=== PATIENT | female | born 1990 | race Caucasian/White ===

== ENCOUNTER 2017-05-19 11:00 | Emergency (ER) | payer BC ==
[2017-05-19 11:12] VITALS: BMI 22.4
--- NOTE | 2017-05-19 11:40 | PDOC ---
History of Present Illness - General Chief Complaint: Pain, Acute Stated Complaint: LOWER PELVIC PAIN Time Seen by Provider: 05/19/17 11:38 Past History - Past Medical History Allergies/Adverse Reactions: Allergies Allergy/AdvReac Type Severity Reaction Status Date / Time No Known Allergies Allergy Verified 05/19/17 11:09 Home Medications: Ambulatory Orders No Home Medications 0 dose .ROUTE UTDICT 12/25/12 GI Disorders: Yes (GERD) - Psycho/Social/Smoking Cessation Hx Suicidal Ideation: No Smoking Status: No Smoking History: Current some day smoker Have you smoked in the past 12 months: Yes Number of Cigarettes Smoked Daily: 0 Information on smoking cessation initiated: No Hx Alcohol Use: No Drug/Substance Use Hx: No *Physical Exam - Vital Signs Last Vital Signs Temp Pulse Resp BP Pulse Ox 97.4 F L 85 23 127/70 100 05/19/17 11:09 05/19/17 11:09 05/19/17 11:09 05/19/17 11:09 05/19/17 11:09 *DC/Admit/Observation/Transfer - Attestations Physician Attestion: 05/19/17 11:39 I, Dr. Zachery Ramirez, attest that this document has been prepared under my direction and personally reviewed by me in its entirety. I further attest, that it accurately reflects all work, treatment, procedures and medical decision -making performed by me.
[2017-05-19 11:48] LABS: BASOPHIL 0.6 % (0-2.0); EOSINOPHIL 3.2 % (0-4.5); MCH 32.5 pg (25.7-33.7); MCHC 34.5 g/dl (32.0-36.0); MEAN CELL VOLUME 94.3 fl (80-96); MEAN PLT VOLUME 8.7 fl (7.5-11.1); NEUTROPHILS 72.1 % (42.8-82.8); PLATELET COUNT 247 K/MM3 (134-434); RDW 12.8 % (11.6-15.6)
[2017-05-19] MEDS ORDERED: ONDANSETRON 4 MG/2 ML VIAL IVPB ONE (11:49)
[2017-05-19] MEDS ORDERED: morphine CARPU-JECT 2 MG/1 ML DISP.SYRIN IVPUSH ONE (11:49)
[2017-05-19] MEDS ORDERED: morphine CARPU-JECT 4 MG/1 ML DISP.SYRIN ONE (11:51)
[2017-05-19] MEDS ORDERED: ONDANSETRON 4 MG/2 ML VIAL ONE (11:52)
[2017-05-19] MEDS ORDERED: SODIUM CHLORIDE 1,000 ML IV STA (12:29)
--- NOTE | 2017-05-19 12:29 | PDOC ---
History of Present Illness - General Chief Complaint: Pain, Acute Stated Complaint: LOWER PELVIC PAIN Time Seen by Provider: 05/19/17 11:38 History Source: Patient Exam Limitations: No Limitations - History of Present Illness Travel History: No Initial Comments: 05/19/17 11:55 27 yr old female with history of IBS presents the ED with sudden onset of sharp burning sensation to her right suprapubic region that started about 1 hour ago while she was working standing up. Patient denies fever, chills, dysuria, irregular menses, history of ovarian cysts, abdominal distention, diarrhea or constipation. Patient also denies recent change in diet or recent travel. Timing/Duration: reports: constant Quality: reports: moderate, burning, sharpness Abdominal Pain Onset Location: reports: suprapubic (rt) Pain Radiation: reports: no radiation Activities at Onset: reports: none Aggravating Factors: improves with: None Alleviating Factors: improves with: None Past History - Travel Traveled outside of the country in the last 30 days: No Close contact w/someone who was outside of country & ill: No - Past Medical History Allergies/Adverse Reactions: Allergies Allergy/AdvReac Type Severity Reaction Status Date / Time No Known Allergies Allergy Verified 05/19/17 11:09 Home Medications: Ambulatory Orders No Home Medications 0 dose .ROUTE UTDICT 12/25/12 GI Disorders: Yes (GERD) - Psycho/Social/Smoking Cessation Hx Suicidal Ideation: No Smoking Status: No Smoking History: Current some day smoker Have you smoked in the past 12 months: Yes Number of Cigarettes Smoked Daily: 0 Information on smoking cessation initiated: No Hx Alcohol Use: No Drug/Substance Use Hx: No Patient Lives Alone: No Lives with/in: parents Review of Systems - Review of Systems Able to Perform ROS?: Yes Constitutional: No: Symptoms Reported HEENTM: No: Symptoms Reported Respiratory: No: Symptoms reported Cardiac (ROS): No: Symptoms Reported ABD/GI: Yes: Nausea, Vomiting, Abdominal cramping : No: Symptoms Reported Musculoskeletal: No: Symptoms Reported Integumentary: No: Symptoms Reported Neurological: No: Headache, Weakness, Dizziness *Physical Exam - Vital Signs Last Vital Signs Temp Pulse Resp BP Pulse Ox 97.4 F L 85 23 127/70 100 05/19/17 11:09 05/19/17 11:09 05/19/17 11:09 05/19/17 11:09 05/19/17 11:09 - Physical Exam General Appearance: Yes: Nourished, Appropriately Dressed. No: Apparent Distress HEENT: negative: Pale Conjunctivae Neck: positive: Supple Respiratory/Chest: positive: Lungs Clear, Normal Breath Sounds. negative: Respiratory Distress, Accessory Muscle Use Cardiovascular: positive: Regular Rhythm, Regular Rate. negative: Murmur Female Pelvic Exam: positive: normal external exam, other (No pelvic exam performed. ) Gastrointestinal/Abdominal: positive: Normal Bowel Sounds, Soft, Tenderness ( right suprapubic. mild guarding and rebound. negative McBurney's.). negative: Distended, Mass Musculoskeletal: negative: CVA Tenderness Extremity: positive: Normal Capillary Refill. negative: Pedal Edema Integumentary: positive: Normal Color, Warm, Moist Neurologic: positive: Normal Mood/Affect, Motor Strength 5/5 (ambulatory) ED Treatment Course - LABORATORY CBC & Chemistry Diagram: 05/19/17 11:45 05/19/17 13:15 - RADIOLOGY Radiology Studies Ordered: Category Date Time Status TRANSVAGINAL ULTRASOUND US [US] Stat Ultrasound 05/19/17 11:48 Ordered Medical Decision Making - Medical Decision Making 05/19/17 12:09 Patient with right suprapubic pain that started about an hour prior to arrival. Patient on exam had tenderness to the area concerning for ovarian cyst versus torsion. Pelvic exam was deferred since patient has never been sexually active. Patient ordered for serum , urinalysis, CBC, comp, Zofran, morphine, and ultrasound. 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 There is no evidence of torsion. There is a complex cyst within the right ovary measuring 2.5 x 2.2 x 2.7 which is likely hemorrhagic in nature. Patient will be discharged home to follow-up with BUILD ENGINEER take NSAIDs and apply heating pad to the affected area *DC/Admit/Observation/Transfer Diagnosis at time of Disposition: Right ovarian cyst - Discharge Dispostion Disposition: HOME Condition at time of disposition: Improved - Referrals Referrals: Emily Gamble MD [Primary Care Provider] - Melo Villafana MD [Staff Physician] - - Patient Instructions Printed Discharge Instructions: DI for Ovarian Cyst Additional Instructions: Take Tylenol 650 mg every 6-8 hours for discomfort. Apply heating pad to the affected area. Please follow-up with referred lamination technician. Print Language: SUDANESE
[2017-05-19 13:18] LABS: PH,URINE 5.5 (5.0-8.0); URINE APPEARANCE CLEAR; URINE BILIRUBIN NEGATIVE (NEGATIVE); URINE COLOR LT. YELLOW; URINE GLUCOSE (UA) NEGATIVE (NEGATIVE); URINE KETONE NEGATIVE (NEGATIVE); URINE LEUK ESTERASE NEGATIVE (NEGATIVE); URINE NITRITE NEGATIVE (NEGATIVE); URINE PROTEIN NEGATIVE (NEGATIVE); URINE UROBILINOGEN 0.2 E.U/dl E.U./dl (0.2-1.0)
[2017-05-19 13:28] LABS: URINE BLOOD TRACE (NEGATIVE); URINE RBC 2 /hpf (0-3); URINE WBC 1 /hpf (3-5)
[2017-05-19 13:29] LABS: ALBUMIN 3.6 g/dl (3.4-5.0); ANION GAP 6 (8-16); BILIRUBIN,TOTAL 0.2 mg/dL (0.2-1.0); CALCIUM 8.2 mg/dL (8.5-10.1); CO2 26 mmol/L (21-32); CREATININE 0.6 mg/dL (0.55-1.02); GLUCOSE,RANDOM 99 mg/dL (74-106); SGPT/ALT 31 U/L (12-78); TOT PROT 6.6 g/dl (6.4-8.2)
[2017-05-19 13:29] LABS: URINE BACTERIA FEW /hpf (NONE SEEN); URINE MUCUS RARE
[2017-05-19 13:30] LABS: ALK PHOS 43 U/L (45-117)
[2017-05-19 13:31] LABS: SGOT/AST 31 U/L (15-37)
[2017-05-19 16:13] VITALS: BP 118/72; PULSE 71; TEMP 97.8
== END 2017-05-19 16:13 | disposition home or self-care (01) ==
LOC: JER 11:00
PROC: 3E0337Z Introduction of Electrolytic and Water Balance Substance into Peripheral Vein, Percutaneous Approach (ICD-10-PCS; principal; 2017-05-19)
PROC: 3E033GC Introduction of Other Therapeutic Substance into Peripheral Vein, Percutaneous Approach (ICD-10-PCS; 2017-05-19)
PROC: 3E033NZ Introduction of Analgesics, Hypnotics, Sedatives into Peripheral Vein, Percutaneous Approach (ICD-10-PCS; 2017-05-19)
DX: N83.201 Unspecified ovarian cyst, right side (principal); K21.9 Gastro-esophageal reflux disease without esophagitis; F17.210 Nicotine dependence, cigarettes, uncomplicated
CPT/HCPCS: 36415; 76856-TC; 80053; 81003; 81015; 84703; 85025; 99284-25